=== PATIENT | female | born 1975 | race Caucasian/White ===

== ENCOUNTER 2017-02-11 10:15 | Emergency (ER) | payer OTHER | END 2017-02-11 11:58 | disposition home or self-care (01) | LOC: ER 10:15 | DX: M41.9 Scoliosis, unspecified (principal); M54.10 Radiculopathy, site unspecified; F17.200 Nicotine dependence, unspecified, uncomplicated; Z90.710 Acquired absence of both cervix and uterus; Z79.899 Other long term (current) drug therapy | CPT/HCPCS: 73522; 96372; J1100 ==